=== PATIENT | female | born 1990 | race Caucasian/White ===

== ENCOUNTER 2016-04-22 22:29 | Emergency (ER) | payer OTHER ==
[~2016-04-22] VITALS: Ht 170.2 cm; Wt 78.1 kg
[~2016-04-22 22:29] MED LIST: AMOX TR-K CLV1 EAC4 PO; AUGMENTIN875 MG PO; Amoxicillin PO; CIPRO500 MG PO; ELAVIL25 MG PO; MACROBID100 MG PO; MEDROL DOSEPAK4 MG PO; MOTRIN600 MG PO; Medrol PO; Motrin PO; NAPROSYN500 MG PO; PERCOCET 5/31 TABLET PO; PRENATAL VITAM1 EAC3 PO; Percocet 5/325,Endoc PO; SORE THROAT LO1 EAC3 MM; VIGAMOX 0.60 DROP/3 BOTH EYES; WELLBUTRIN XL150 MG PO; WELLBUTRIN75 MG PO; ZOFRAN ODT4 MG PO
[2016-04-23] MEDS ORDERED: KEFLEX500 MG PO (01:11)
[2016-04-23] MEDS ORDERED: MOTRIN800 MG PO (01:11)
[2016-04-23 01:24] VITALS: BP 138/87
== END 2016-04-23 01:40 | disposition home or self-care (01) ==
LOC: EME 22:29
DX: I80.8 Phlebitis and thrombophlebitis of other sites (principal); M79.601 Pain in right arm
CPT/HCPCS: 93971; 99281; 99284

== ENCOUNTER 2016-05-05 18:50 | Emergency (ER) | payer OTHER ==
[~2016-05-05] VITALS: Ht 170.2 cm; Wt 77.5 kg
[~2016-05-05 18:50] MED LIST changes: +KEFLEX500 MG PO; +MOTRIN800 MG PO
[2016-05-05] MEDS ORDERED: NARCAN4 MG NS (20:10)
[2016-05-05 20:18] VITALS: BP 114/72
== END 2016-05-05 20:25 | disposition home or self-care (01) ==
LOC: EME 18:50
DX: T40.1X1A Poisoning by heroin, accidental (unintentional), initial encounter (principal)
CPT/HCPCS: 93005; 99281; 99285; J2310

== ENCOUNTER 2016-05-14 06:57 | Emergency (ER) | payer OTHER ==
[~2016-05-14] VITALS: Ht 167.6 cm; Wt 77.0 kg
[~2016-05-14 06:57] MED LIST changes: +NARCAN4 MG NS
[2016-05-14] MEDS ORDERED: ZUBSOLV 5.7-1.1 EACH SL (07:17)
[2016-05-14 08:03] LABS: HEMATOCRIT 33.3 % (36.0-46.0); MCH 26.7 PG (29.0-34.0); MCHC 32.4 G/DL (30.0-36.0); MCV 82.2 FL (83-99); MEAN PLAT.VOLUME 10.6 uM^3 (9.5-12.4); PLATELET COUNT 173 K/uL (156-360); RBC DIS.WIDTH-CV 13.3 % (11.8-14.6); RBC DIS.WIDTH-SD 38.8 % (39-53); RED BLOOD COUNT 4.05 M/uL (3.80-5.20); WHITE BLOOD COUNT 9.5 K/uL (4.1-10.2)
[2016-05-14 08:29] LABS: ANION GAP 8 MEQ/L (2-14); CHLORIDE 106 MEQ/L (99-109); POTASSIUM 3.7 MEQ/L (3.7-5.4); SAMPLE HEMOLYSIS CHECK 0; SAMPLE ICTERIC CHECK 0; SAMPLE LIPEMIA CHECK 0; SODIUM 138 MEQ/L (136-147)
[2016-05-14 08:34] LABS: GFR ESTIMATE (CALCULATED) > 59 mL/min/; GLUCOSE 113 mg/dL (70-99); UREA NITROGEN (BUN) 20 mg/dL (9-23)
[2016-05-14 08:52] LABS: ADD MIUA? YES; BILIRUBIN NEGATIVE; BLOOD MODERATE; COLOR YELLOW ((YELLOW)); GLUCOSE (STRIP) NEGATIVE; KETONES 5; LEUKOCYTES NEGATIVE; NITRITE NEGATIVE; PROTEIN (STRIP) 30; SPECIFIC GRAVITY 1.024 (1.000-1.030); UROBILINOGEN 0.2 MG/DL (0.2-1.0)
[2016-05-14 08:55] LABS: INTERNAL CONTROL VALID? YES
[2016-05-14 09:00] LABS: BACTERIA NONE SEEN /HPF; EPITHELIAL CELLS 1+ /HPF; GRANULAR CASTS 0-5 /LPF; HYALINE CASTS 0-5 /LPF; MUCUS 1+ /LPF; RED BLOOD CELLS 0-5 /HPF (0-5); UCUL ADDED? NO; WHITE BLOOD CELLS 0-5 /HPF (0-5)
[2016-05-14 09:01] LABS: AMPHETAMINE NEGATIVE (500 ng/mL); BARBITURATES NEGATIVE (200 ng/mL); BENZODIAZEPINES NEGATIVE (150 ng/mL); COCAINE PRESUMPTIVE POSITIVE (150 ng/mL); METHADONE NEGATIVE (200 ng/mL); METHAMPHETAMINE PRESUMPTIVE POSITIVE (500 ng/mL); OPIATES (MORPHINE) PRESUMPTIVE POSITIVE (100 ng/mL); OXYCODONE PRESUMPTIVE POSITIVE (100 ng/mL); PHENCYCLIDINE NEGATIVE (25 ng/mL); THC CANNABINOIDS NEGATIVE (50 ng/mL); TRICYCLIC ANTIDEPRESSANTS NEGATIVE (300 ng/mL)
[2016-05-14 09:02] LABS: INTERNAL CONTROLS VALID? YES; PROPOXYPHENE NEGATIVE (300 ng/mL)
[2016-05-14 09:03] LABS: ADD MEDTOX COMMENT Y
[2016-05-14 14:00] VITALS: BP 112/76
== END 2016-05-14 14:00 | disposition home or self-care (01) ==
LOC: EME 06:57
PROVIDERS: Emergency Medicine
PROC: 3E0234Z Introduction of Serum, Toxoid and Vaccine into Muscle, Percutaneous Approach (ICD-10-PCS; principal; 2016-05-14)
DX: F11.10 Opioid abuse, uncomplicated (principal); T40.5X1A Poisoning by cocaine, accidental (unintentional), initial encounter; S80.811A Abrasion, right lower leg, initial encounter; R51 Headache; W19.XXXA Unspecified fall, initial encounter; R00.0 Tachycardia, unspecified; Z23 Encounter for immunization
CPT/HCPCS: 80048; 81003; 84703; 84999; 85027; 93005; 99281; 99285; J2310; J7030